=== PATIENT | male | born 1960 | race Caucasian/White ===

== ENCOUNTER 2024-03-27 14:12 | Emergency (ER) | payer BC ==
[~2024-03-27] VITALS: Ht 175.3 cm; Wt 88.5 kg
[2024-03-27 14:25] VITALS: BP_SYST 149; PULSE 90; RESP 18; TEMP 98.5; O2SAT 98
[2024-03-27 16:48] LABS: HEMOGLOBIN 16.7 g/dL (14.0-18.0); MEAN CORPUSCULAR HEMOGLOBIN 32 pg (27-31)
[2024-03-27 17:12] LABS: BASOPHILS # (AUTO) 0.1 K/uL (0.0-0.2); EOSINOPHILS # (AUTO) 0.3 K/uL (0.0-0.4); LYMPHOCYTES # (AUTO) 2.3 K/uL (1.0-5.5); LYMPHOCYTES % (AUTO) 28.4 % (20.5-51.5); MONOCYTES # (AUTO) 0.6 K/uL (0.0-1.0); NEUTROPHILS # (AUTO) 4.9 K/uL (1.8-7.7); RED BLOOD CELL COUNT(AUTO) 5.22 MIL/uL (4.2-6.2); WHITE BLOOD COUNT (AUTO) 8.2 K/uL (4.8-10.8)
[2024-03-27 17:14] LABS: ALBUMIN 4.3 g/dL (3.4-4.8); BILIRUBIN,DIRECT 0.1 mg/dL (0.0-0.3); CALCIUM 9.5 mg/dL (8.4-11.0); CREATININE 1.05 mg/dL (0.55-1.30); POTASSIUM 3.9 mmol/L (3.5-5.1); TOTAL BILIRUBIN 0.5 mg/dL (0.0-1.0)
[2024-03-27 17:19] LABS: BASOPHILS % (AUTO) 0.9 % (0.0-2.0); EOSINOPHILS % (AUTO) 3.9 % (0.0-4.0); HEMATOCRIT 48.2 % (36-54); MEAN CORPUSCULAR HGB CONC 35 % (32-36); MEAN CORPUSCULAR VOLUME 92 fL (79.0-98.0); NEUTROPHILS % (AUTO) 59.8 % (40.0-70.0); PLATELET COUNT (AUTO) 240 K/uL (130-430); RED CELL DISTRIBUTION WIDTH 12.9 % (9.0-15.0)
[2024-03-27 18:22] LABS: BILIRUBIN,URINE NEGATIVE (NEGATIVE); CLARITY/URINE CLEAR (CLEAR); COLOR,URINE YELLOW (YELLOW); GLUCOSE,URINE 3+ (NEGATIVE); KETONES,URINE NEGATIVE (NEGATIVE); LEUKOCYTE ESTERASE ,URINE NEGATIVE (NEGATIVE); NITRITE, URINE NEGATIVE (NEGATIVE); PROTEIN URINE NEGATIVE (NEGATIVE); UROBILINOGEN,URINE 0.2 (0.2-1.0)
[2024-03-27 18:23] LABS: BLOOD, URINE TRACE (NEGATIVE)
[2024-03-27 18:47] LABS: BACTERIA,URINE RARE /HPF (None Seen); RBC,URINE 0-3 /HPF (0-3); WBC,URINE 0-3 /HPF (0-3)
[2024-03-27 18:48] LABS: MUCUS,URINE None Seen /LPF (None Seen)
[2024-03-27] MEDS ORDERED: MOM PO (19:16)
[2024-03-27 19:27] VITALS: BP_SYST 119; PULSE 71; RESP 17; TEMP 98.4; O2SAT 100
== END 2024-03-27 19:28 | disposition home or self-care (01) ==
LOC: SED 14:12
DX: K60.2 Anal fissure, unspecified (principal); I10 Essential (primary) hypertension; E11.9 Type 2 diabetes mellitus without complications; Z79.899 Other long term (current) drug therapy
CPT/HCPCS: 36415; 80048; 80076; 81000; 81001; 81015; 83690; 85025; 99283